=== PATIENT | male | born 1980 | race Caucasian/White ===

== ENCOUNTER 2020-10-24 20:23 | Emergency (ER) | payer MEDICARE ==
[~2020-10-24 20:23] MED LIST: LAMICTAL; TOPAMAX; VALIUM
[2020-10-24 20:55] LABS: BASOPHILS # (AUTO) 0.1 (0.0-0.1); BASOPHILS % 0.3 % (0.0-1.0); EOSINOPHILS # (AUTO) 0.2 (0.0-0.4); HEMATOCRIT 43.8 % (38.2-49.6); HEMOGLOBIN 15.1 g/dL (14.0-18.0); LYMPHOCYTES # (AUTO) 3.6 (1.0-3.2); LYMPHOCYTES % 21.9 % (18.0-39.1); MEAN CORPUSCULAR HEMOGLOBIN 31.6 pg (28-32); MEAN CORPUSCULAR HGB CONC 34.5 g/dL (31-35); MEAN CORPUSCULAR VOLUME 91.6 fL (81-99); MONOCYTES # (AUTO) 1.6 (0.2-0.8); MONOCYTES % 9.6 % (4.4-11.3); NEUTROPHILS # (AUTO) 10.8 (2.1-6.9); NEUTROPHILS % 66.6 % (38.7-80.0); PLATELET COUNT 201 x10e3/uL (140-360); RED BLOOD COUNT 4.78 x10e6/uL (4.3-5.7); RED CELL DISTRIBUTION WIDTH 12.4 % (11.7-14.4)
[2020-10-24 21:03] LABS: CLARITY,URINE HAZY (CLEAR); COLOR,URINE YELLOW (YELLOW); KETONES,URINE NEGATIVE (NEGATIVE); LEUKOCYTE ESTERASE ,URINE NEGATIVE (NEGATIVE); NITRITE,URINE NEGATIVE (NEGATIVE); PROTEIN,URINE DIPSTICK NEGATIVE (NEGATIVE)
[2020-10-24 21:04] LABS: AMPHETAMINES SCREEN,URINE NEGATIVE (NEGATIVE); BENZODIAZEPINES SCREEN,URINE POSITIVE (NEGATIVE); PHENCYCLIDINE SCREEN,URINE NEGATIVE (NEGATIVE); URINE UROBILINOGEN 4 mg/dL (0.2 - 1)
[2020-10-24 21:11] LABS: ALANINE AMINOTRANSFERASE 34 IU/L (0-55); ALBUMIN 3.7 g/dL (3.5-5.0); ALKALINE PHOSPHATASE 127 IU/L (40-150); ANION GAP 13.7 mmol/L (8-16); BACTERIA,URINE FEW /HPF; BLOOD UREA NITROGEN 13 mg/dL (7-26); BUN/CREATININE RATIO 15 (6-25); CALCIUM 8.3 mg/dL (8.4-10.2); CARBON DIOXIDE 22 mmol/L (22-29); CHLORIDE 107 mmol/L (98-107); CREATININE, SERUM 0.88 mg/dL (0.72-1.25); EPITHELIAL CELLS,URINE FEW /LPF; EST GLOMERULAR FILTRATION RATE > 60 ML/MIN (60-); GLUCOSE 102 mg/dL (74-118); POTASSIUM 3.7 mmol/L (3.5-5.1); RBC,URINE 0-5 /HPF (0-5); SODIUM 139 mmol/L (136-145); WBC,URINE (MAN) 0-5 /HPF (0-5)
[2020-10-24] MEDS ORDERED: LEVETIRACETAM 500 MG TAB PO ONE (22:30)
== END 2020-10-24 22:50 | disposition home or self-care (01) ==
LOC: ER 20:28
DX: G40.909 Epilepsy, unspecified, not intractable, without status epilepticus (principal); R06.02 Shortness of breath; F31.9 Bipolar disorder, unspecified
CPT/HCPCS: 36415; 80053; 80307; 81001; 85025; 93005; 99284

== ENCOUNTER 2020-12-23 12:42 | Emergency (ER) | payer MEDICARE ==
[~2020-12-23] VITALS: Ht 172.7 cm; Wt 138.3 kg
[2020-12-23 13:34] LABS: BASOPHILS # (AUTO) 0.1 (0.0-0.1); BASOPHILS % 0.4 % (0.0-1.0); EOSINOPHILS # (AUTO) 0.3 (0.0-0.4); EOSINOPHILS % 2.1 % (0.0-6.0); HEMATOCRIT 44.1 % (38.2-49.6); HEMOGLOBIN 14.3 g/dL (14.0-18.0); LYMPHOCYTES # (AUTO) 3.5 (1.0-3.2); LYMPHOCYTES % 24.2 % (18.0-39.1); MEAN CORPUSCULAR HEMOGLOBIN 30.8 pg (28-32); MEAN CORPUSCULAR HGB CONC 32.4 g/dL (31-35); MEAN CORPUSCULAR VOLUME 94.8 fL (81-99); MONOCYTES # (AUTO) 1.1 (0.2-0.8); MONOCYTES % 7.8 % (4.4-11.3); NEUTROPHILS # (AUTO) 9.3 (2.1-6.9); NEUTROPHILS % 64.8 % (38.7-80.0); PLATELET COUNT 206 x10e3/uL (140-360); RED BLOOD COUNT 4.65 x10e6/uL (4.3-5.7); RED CELL DISTRIBUTION WIDTH 13.8 % (11.7-14.4)
[2020-12-23 13:55] LABS: ALANINE AMINOTRANSFERASE 29 IU/L (0-55); ALBUMIN 3.7 g/dL (3.5-5.0); ALKALINE PHOSPHATASE 120 IU/L (40-150); ANION GAP 14.8 mmol/L (8-16); BLOOD UREA NITROGEN 9 mg/dL (7-26); BUN/CREATININE RATIO 7 (6-25); CALCIUM 8.8 mg/dL (8.4-10.2); CARBON DIOXIDE 16 mmol/L (22-29); CHLORIDE 113 mmol/L (98-107); CREATINE KINASE 143 IU/L (30-200); CREATININE, SERUM 1.32 mg/dL (0.72-1.25); EST GLOMERULAR FILTRATION RATE 60 ML/MIN (60-); GLUCOSE 127 mg/dL (74-118); POTASSIUM 3.8 mmol/L (3.5-5.1); SODIUM 140 mmol/L (136-145)
[2020-12-23 14:23] LABS: AMPHETAMINES SCREEN,URINE NEGATIVE (NEGATIVE); BENZODIAZEPINES SCREEN,URINE NEGATIVE (NEGATIVE); CLARITY,URINE SL CLOUDY (CLEAR); COLOR,URINE YELLOW (YELLOW); KETONES,URINE NEGATIVE (NEGATIVE); LEUKOCYTE ESTERASE ,URINE NEGATIVE (NEGATIVE); NITRITE,URINE NEGATIVE (NEGATIVE); PHENCYCLIDINE SCREEN,URINE NEGATIVE (NEGATIVE); PROTEIN,URINE DIPSTICK NEGATIVE (NEGATIVE); URINE UROBILINOGEN 0.2 mg/dL (0.2 - 1)
[2020-12-23 14:35] LABS: AMORPHOUS SEDIMENT,URINE MANY (FEW); BACTERIA,URINE FEW /HPF; RBC,URINE 0-5 /HPF (0-5)
== END 2020-12-23 15:39 | disposition home or self-care (01) ==
LOC: ER 13:41
DX: R06.00 Dyspnea, unspecified (principal); G40.909 Epilepsy, unspecified, not intractable, without status epilepticus; F31.9 Bipolar disorder, unspecified; F17.210 Nicotine dependence, cigarettes, uncomplicated
CPT/HCPCS: 36415; 70450; 71045; 80053; 80307; 81001; 82542; 82550; 82553; 83735; 84484; 85025; 93005; 99283

== ENCOUNTER 2021-05-04 15:50 | Emergency (ER) | payer MEDICARE, OTHER ==
[2021-05-04 16:14] LABS: BASOPHILS # (AUTO) 0.1 (0.0-0.1); BASOPHILS % 0.5 % (0.0-1.0); EOSINOPHILS # (AUTO) 0.3 (0.0-0.4); HEMATOCRIT 47.2 % (38.2-49.6); HEMOGLOBIN 16.1 g/dL (14.0-18.0); LYMPHOCYTES % 36.4 % (18.0-39.1); MEAN CORPUSCULAR HGB CONC 34.1 g/dL (31-35); MEAN CORPUSCULAR VOLUME 90.8 fL (81-99); MONOCYTES # (AUTO) 0.9 (0.2-0.8); MONOCYTES % 8.2 % (4.4-11.3); NEUTROPHILS # (AUTO) 5.7 (2.1-6.9); NEUTROPHILS % 51.5 % (38.7-80.0); PLATELET COUNT 154 x10e3/uL (140-360); RED CELL DISTRIBUTION WIDTH 13.3 % (11.7-14.4)
[2021-05-04 16:32] LABS: ANION GAP 12.7 mmol/L (8-16); CREATININE, SERUM 0.98 mg/dL (0.72-1.25); POTASSIUM 3.7 mmol/L (3.5-5.1)
[2021-05-04 17:36] VITALS: BP 114/64
== END 2021-05-04 17:46 | disposition home or self-care (01) ==
LOC: ER 15:52
DX: R07.9 Chest pain, unspecified (principal); G40.909 Epilepsy, unspecified, not intractable, without status epilepticus; F41.9 Anxiety disorder, unspecified; F31.9 Bipolar disorder, unspecified; F17.210 Nicotine dependence, cigarettes, uncomplicated
CPT/HCPCS: 36415; 71045; 80053; 84484; 85025; 93005; 99283

== ENCOUNTER 2021-05-21 14:56 | Emergency (ER) | payer MEDICARE, OTHER ==
[~2021-05-21] VITALS: Ht 172.7 cm; Wt 141.1 kg
[2021-05-21] MEDS ORDERED: IBUPROFEN 600 MG TAB PO STA (15:10)
[2021-05-21 15:29] LABS: BASOPHILS % 0.4 % (0.0-1.0); EOSINOPHILS # (AUTO) 0.1 (0.0-0.4); EOSINOPHILS % 1.4 % (0.0-6.0); HEMOGLOBIN 15.7 g/dL (14.0-18.0); LYMPHOCYTES # (AUTO) 2.4 (1.0-3.2); LYMPHOCYTES % 24.4 % (18.0-39.1); MEAN CORPUSCULAR HEMOGLOBIN 30.8 pg (28-32); MEAN CORPUSCULAR HGB CONC 33.4 g/dL (31-35); MEAN CORPUSCULAR VOLUME 92.2 fL (81-99); MONOCYTES % 9.6 % (4.4-11.3); NEUTROPHILS # (AUTO) 6.3 (2.1-6.9); NEUTROPHILS % 63.8 % (38.7-80.0); PLATELET COUNT 176 x10e3/uL (140-360); RED CELL DISTRIBUTION WIDTH 12.9 % (11.7-14.4)
[2021-05-21 15:59] LABS: INR 0.95; PARTIAL THROMBOPLASTIN TIME 30.1 seconds (23.8-35.5); PROTHROMBIN TIME 13.4 seconds (11.9-14.5)
[2021-05-21 16:01] LABS: ALBUMIN 4.1 g/dL (3.5-5.0); ALBUMIN/GLOBULIN RATIO 1.1 (0.8-2.0); ANION GAP 12.5 mmol/L (8-16); CALCIUM 8.8 mg/dL (8.4-10.2); CREATININE, SERUM 0.9 mg/dL (0.72-1.25); POTASSIUM 3.5 mmol/L (3.5-5.1)
[2021-05-21] MEDS ORDERED: KEPPRA500 MG PO (16:29)
[2021-05-21] MEDS ORDERED: IBUPROFEN400 MG PO (16:29)
[2021-05-21 16:37] VITALS: BP 117/52
== END 2021-05-21 16:38 | disposition home or self-care (01) ==
LOC: ER 15:04
DX: R07.9 Chest pain, unspecified (principal); R50.9 Fever, unspecified; G40.909 Epilepsy, unspecified, not intractable, without status epilepticus; F41.9 Anxiety disorder, unspecified; F31.9 Bipolar disorder, unspecified
CPT/HCPCS: 36415; 71045; 80053; 82550; 82553; 83880; 84484; 85025; 85610; 85730; 93005; 99284

== ENCOUNTER 2022-08-23 19:13 | Emergency (ER) | payer MEDICARE ==
[~2022-08-23] VITALS: Ht 172.7 cm; Wt 141.1 kg
[~2022-08-23 19:13] MED LIST changes: +IBUPROFEN400 MG PO; +KEPPRA500 MG PO
[2022-08-23 19:50] LABS: BASOPHILS # (AUTO) 0.1 (0.0-0.1); BASOPHILS % 0.4 % (0.0-1.0); EOSINOPHILS # (AUTO) 0.5 (0.0-0.4); EOSINOPHILS % 3.7 % (0.0-6.0); HEMATOCRIT 44.7 % (38.2-49.6); HEMOGLOBIN 14.2 g/dL (14.0-18.0); LYMPHOCYTES # (AUTO) 4.4 (1.0-3.2); LYMPHOCYTES % 36.4 % (18.0-39.1); MEAN CORPUSCULAR HEMOGLOBIN 29.5 pg (28-32); MEAN CORPUSCULAR HGB CONC 31.8 g/dL (31-35); MEAN CORPUSCULAR VOLUME 92.7 fL (81-99); NEUTROPHILS # (AUTO) 6.2 (2.1-6.9); NEUTROPHILS % 51.2 % (38.7-80.0); PLATELET COUNT 173 x10e3/uL (140-360); RED BLOOD COUNT 4.82 x10e6/uL (4.3-5.7); RED CELL DISTRIBUTION WIDTH 13.3 % (11.7-14.4)
[2022-08-23 20:09] LABS: ALANINE AMINOTRANSFERASE 31 IU/L (0-55); ALBUMIN/GLOBULIN RATIO 1.1 (0.8-2.0); ALKALINE PHOSPHATASE 85 IU/L (40-150); ANION GAP 12.9 mmol/L (8-16); BLOOD UREA NITROGEN 21 mg/dL (7-26); BUN/CREATININE RATIO 19 (6-25); CARBON DIOXIDE 17 mmol/L (22-29); CHLORIDE 108 mmol/L (98-107); CREATINE KINASE 359 IU/L (30-200); CREATININE, SERUM 1.13 mg/dL (0.72-1.25); GLUCOSE 95 mg/dL (74-118); SODIUM 135 mmol/L (136-145)
[2022-08-23 20:12] LABS: POTASSIUM 2.9 mmol/L (3.5-5.1)
[2022-08-23 21:17] LABS: AMPHETAMINES SCREEN,URINE NEGATIVE (NEGATIVE); BENZODIAZEPINES SCREEN,URINE NEGATIVE (NEGATIVE); PHENCYCLIDINE SCREEN,URINE NEGATIVE (NEGATIVE)
== END 2022-08-23 21:52 | disposition home or self-care (01) ==
LOC: ER 19:32
DX: R06.02 Shortness of breath (principal); R07.9 Chest pain, unspecified; E87.6 Hypokalemia; F31.9 Bipolar disorder, unspecified
CPT/HCPCS: 36415; 71045; 80053; 80307; 82550; 82553; 83690; 83880; 84484; 85025; 85379; 93005; 99284

== ENCOUNTER 2022-09-07 16:13 | Emergency (ER) | payer MEDICARE ==
[~2022-09-07] VITALS: Ht 172.7 cm; Wt 141.1 kg
[2022-09-07] MEDS ORDERED: TOPIRAMATE100 MG PO (17:19)
[2022-09-07] MEDS ORDERED: LAMOTRIGINE100 MG PO (17:19)
[2022-09-07] MEDS ORDERED: LAMOTRIGINE 100 MG TAB PO ONE (17:30)
[2022-09-07] MEDS ORDERED: TOPIRAMATE 100 MG TAB PO ONE (17:30)
== END 2022-09-07 17:35 | disposition home or self-care (01) ==
LOC: ER 17:06
DX: Z76.0 Encounter for issue of repeat prescription (principal); G40.909 Epilepsy, unspecified, not intractable, without status epilepticus; F31.9 Bipolar disorder, unspecified
CPT/HCPCS: 99282